=== PATIENT | female | born 1955 | race Caucasian/White ===

== ENCOUNTER → 2016-06-18 | Outpatient (CLI) | payer BC ==
[~2016-06-18] MED LIST: Gadobutrol 7.5 mMOL/7.5 ML SDV IVPUSH STA
--- NOTE | 2016-06-21 08:47 | MR ---
EXAMINATION: MRI abdomen with and without contrast HISTORY: Three-phase liver protocol, abnormal finding on the prior CT. COMPARISON: CT dated 01/08/2016. TECHNIQUE: The plantar and multisequence images obtained through the abdomen before and following th e administration of Gadavist. FINDINGS: There is signal dropout throughout the liver on the out of phase images consistent with fa tty infiltration, however there is an area of increased signal dropout near the gallbladder fossa ro ughly similar in size in comparison to the previous CT. This area is not notable on the T2-weighted images and does not demonstrate enhancement or diffusion restriction. Otherwise no focal hepatic ab normality identified. The spleen, adrenal glands, and pancreas appear normal. No bulky retroperitone al lymphadenopathy or abdominal ascites. The kidneys enhance and function symmetrically without evid ence of obstructive uropathy. Visualized large and small bowel are normal in caliber. No abnormal ebenezer ne marrow signal. IMPRESSION: 1. There is a grossly stable 2.6 cm area within the liver adjacent to the gallbladder fossa demonstr ating notable signal dropout on out of phase images. This likely represents an area of focal increas ed fatty infiltration with overlying general fatty infiltration of the liver. 2. Otherwise no acute findings or abnormalities demonstrated within the abdomen.
== END | disposition home or self-care (01) ==
LOC: MW.MRI 08:41
PROVIDERS: ATTEND Student in an Organized Health Care Education/Training Program
DX: K76.9 Liver disease, unspecified (principal)
CPT/HCPCS: 74182; A9585

== ENCOUNTER → 2016-08-03 | Outpatient (CLI) | payer BC | LOC: MW.CHFP 09:06 | PROVIDERS: ATTEND Student in an Organized Health Care Education/Training Program | DX: E78.5 Hyperlipidemia, unspecified (principal); I10 Essential (primary) hypertension; E11.9 Type 2 diabetes mellitus without complications | CPT/HCPCS: 36415; 80053; 80061; 82044; 83036 ==

== ENCOUNTER → 2016-08-10 | Outpatient (CLI) | payer BC ==
--- NOTE | 2016-08-12 13:10 | XA ---
Exam Date: 08/10/16 Patient's Age: 60 HEIGHT: 60.0 in. WEIGHT: 143.0 lbs. INDICATIONS: Back pain, bilateral oophorectomy, , family history of osteoporosis, hysterectomy, postmenopausal. FRACTURES: TREATMENTS: Calcium, CoQ10 enzyme, Crestor, estrogen, fish oil, flax seed oil , Lisinopril, magnesium, Metformin, multivitamin, Pepcid, vitamin D, Wellbutrin , Xyzal. ASSESSMENT: The BMD measured at Femur Neck Mean is 1.032 g/cm2 with a T-score of 0.0. This patient is considered normal according to World Health Organization (WHO) criteria. Fracture risk is low. The BMD measured at Femur Troch Mean is 0.835 g/cm2 with a T-score of -0.1 is normal. Fracture risk is low. RESULTS: Site Region Age Classification T-Score BMD AP Spine L1-L4 58.7 Normal 1.8 1.418 g/cm2 Dual Femur Neck Mean 58.7 Normal 0.0 1.032 g/cm2 Dual Femur Troch Mean 58.7 N/A -0.1 0.835 g/cm2 Dual Femur Total Mean 58.7 Normal 0.3 1.048 g/cm2 World Health Organization - Criteria for post-menopausal, women: Normal: T-Score at or above -1 SD Osteopenia: T-Score between -1 and -2.5 SD Osteoporosis: T-Score at or below -2.5 SD RECOMMENDATION: Pharmacologic treatment recommendations & Initiate pharmacologic treatment: - In those with hip or vertebral (clinical or asymptomatic) fractures - In those with T -scores <-2.5 at the femoral neck, total hip, or lumbar spine by DXA - In postmenopausal women and men age 50 and older with low bone mass (T-score between -1.0 and -2.5, osteopenia) at the femoral neck, total hip, or lumbar spine by DXA and a 10-year hip fracture probability >3 % or a 10-year major osteoporosis-related fracture probability >20% based on the [place]-adapted WHO absolute fracture risk model (Fracture Risk Algorithm (FRAX); www. NOF.org and www.shef.ac.uk/FRAX) FOLLOW UP: People with diagnosed cases of osteoporosis or at high risk for fracture should have regular bone mineral density tests. For patients eligible for Medicare, routine testing is allowed once every 2 years. The testing frequency can be increased to 1 year for patients who have rapidly progressing disease, those who are reviewing or discontinuing medial therapy to restore bone mass, or have additional risk factors. People with diagnosed cases of osteoporosis or osteopenia should be regularly tested for bone mineral density. For patient eligible for Medicare, routine testing is allowed once every 2 years. The testing frequency can be increased to 1 year for patients who have rapidly progressing disease, or for those who are receiving medial therapy to restore bone mass. [facility] [place] -- [place] [phone] - FAX: [phone] [place]
== END ==
LOC: MW.DI 10:54
PROVIDERS: ATTEND Student in an Organized Health Care Education/Training Program
DX: Z00.00 Encounter for general adult medical examination without abnormal findings (principal)
CPT/HCPCS: 77080; 77080-26